=== PATIENT | male | born 1950 | race Two or more races ===

== ENCOUNTER 2024-06-15 13:39 | Emergency (ER) | payer OTHER ==
[~2024-06-15] VITALS: Ht 180.3 cm; Wt 76.9 kg
[2024-06-15] MEDS: SODIUM CHLORIDE 0.9% 1,000 ML IV ONE (14:30)
[2024-06-15 14:56] LABS: Basophils # (auto) 0 10 ^3/uL (0-0.2); Basophils % (auto) 0.7 % (0.0-2.0); Eosinophils # (auto) 0.1 10 ^3/uL (0-0.8); Hematocrit 24.5 % (41.0-53.0); Hemoglobin 7.3 g/dL (13.5-17.5); Lymphocytes # (auto) 1.3 10 ^3/uL (0.4-5.4); Monocytes # (auto) 0.4 10 ^3/uL (0-1.3)
[2024-06-15 14:57] LABS: Lymphocytes % (auto) 26.7 % (10.0-50.0); Mean Corpuscular Hemoglobin 20.2 pg (28.0-32.0); Mean Corpuscular Volume 67.3 fL (80.0-100.0); Monocytes % (auto) 7.7 % (0.0-12.0); Neutrophils % (auto) 62.9 % (37.0-80.0); Nucleated Red Blood Cells % 0.1 %; Platelet Count (auto) 344 10^3/uL (140-450); Red Blood Cells 3.63 10^6/uL (4.5-5.90); Red Cell Distribution Width 18.2 % (11.8-14.3); White Blood Cell 4.8 10^3/uL (4.4-10.8)
[2024-06-15 15:04] LABS: Chloride 106 mmol/L (98-107); Sodium 140 mmol/L (136-145)
[2024-06-15 15:05] LABS: Anion Gap 9 (5-15); Carbon Dioxide 25 mmol/L (20-31)
[2024-06-15 15:06] LABS: Calcium 9.5 mg/dL (8.7-10.4)
[2024-06-15 15:10] LABS: BUN/Creatinine Ratio 7.6 (10.0-20.0); Blood Urea Nitrogen 8 mg/dL (9-23); Glucose 106 mg/dL (74-106)
--- NOTE | 2024-06-15 15:28 | ED.PDOC ---
History of Present Illness HPI Comments HPI: Poor Historian. 73-year-old male presents to the emergency department from PCP's office for low hemoglobin of blood obtained yesterday showing hemoglobin of 7.1. Patient complains of some exertional dyspnea and generalized weakness. Denies any bleeding from anywhere. Patient has been off of his aspirin for the last 10 days but took one pill yesterday for a headache. He is off of his aspirin in preparation for a colonoscopy coming up next week. He never had a colonoscopy before. He states having history of hemorrhoids but he is not actively bleeding. He states his stool color is normal. VITALS; TEMP: 98.3 F HEART RATE; 72 02 SAT; 98% on room air RR; 18 BP; 135/75 PMH: hyperlipidemia, hemorrhoids PSH: R knee SOCIAL HISTORY: denies tobacco use, denies etoh use, denies drug use MEDS; Xanax, ASA ALLERGIES; ibuprofen, acetaminophen REVIEW OF SYSTEMS: CONSTITUTIONAL: Denies acute: fever, diaphoresis, chills, HEAD: Denies acute: headache, photophobia Eyes: Denies acute: Double vision, vision loss, eye pain, eye discharge. EARS: Denies acute: tinnitus, hearing loss, ear discharge, ear pain, THROAT: Denies acute: sore throat, swelling, difficulty swallowing , pain with swallowing, change in voice. NECK: Denies acute: neck pain, neck swelling, stiff neck. HEART: Denies acute : chest pain, palpitations, LUNGS: Denies acute: wheezing, cough, hemoptysis ABDOMEN: Denies acute: abdominal pain, Nausea, Vomiting, diarrhea, melena , hematemesis, hematochezia SKIN: Denies acute: rash, redness, lesions, itchiness. EXTREMITIES: Denies acute: calf pain, numbness, tingling, weakness, denies pain in extremity. Denies acute: Low back pain. Neuro: Denies acute: focal neurological deficit, motor or sensory focal neurological deficit, tremors, seizure like activity, confusion, dizziness, change in mental status, loss of bowel or bladder function, cauda equina like symptoms. : Denies acute: dysuria, hematuria, flank pain, increase in urinary frequency. PSYCH: Denies acute: hallucination, suicidal ideation, homicidal ideation. PHYSICAL EXAM: General: no acute distress, awake and alert. Head: normocephalic, atraumatic. Neck: supple, trachea is midline, no swelling. Throat: Normal phonation. Eyes:, no erythema, no purulent discharge, no proptosis, no icterus. Heart: regular rate, regular rhythm, no significant murmur appreciated. Lungs: no apparent respiratory distress, Able to speak in full sentences. No wheezing, no rhonchi, no crackles. No stridors Clear to auscultation bilaterally. Abdomen: non tender to palpation, non distended, soft, no guarding, no rebound, + bowel sounds. Neuro: Awake, Alert, oriented to name, self, situation, follows commands GCS=15. Speech is normal. Skin: no petechia, no purpura, no cyanosis, slightly-pale, not jaundice. Lower extremities: --trace bilateral - Pitting edema no deformity, no focal swelling, no calf TTP. Makes eye contact. moves all four extremities. Face: no apparent facial droop. Ambulating in the ED independently. Chief Complaint: Abnormal LAB's Time Seen by MD: 13:44 Reviewed Notes: Nurses Notes, Medications, Allergies Allergies: Coded Allergies: NO KNOWN ALLERGIES (Unverified , 06/15/24) Information Source: Patient Mode of Arrival: Ambulatory Past Medical History PAST MEDICAL HISTORY: High Lipids Past Medical History (Other): hemorrhoids Surgical History: Denies all surgeries Surgical History (Other): R knee Family History Family History: Reviewed,noncontributory to illness Social History Smoker: Non-Smoker Alcohol: Denies ETOH Use Drugs: Denies Drug Use Lives In: Home Was a procedure done? Was a procedure done?: No Differential Dx Considerations may include: As far as shortness of breath, DDx include ACS, unstable angina, anxiety, PE, pneumothroax, neoplasm, cardiac ischemia, COPD, asthma, CHF, pleural effusion, tobacco abuse, pneumonia, hypoxia, hypercapnia, anemia., infection/sepsis., pulmonary edema. Asthma, Cardiac tamponade, infection. As far as anemia: Differential diagnosis includes but not limited to blood loss, infection, neoplasm, leukemia, iron deficiency, poisoning, GI bleed. X-Ray, Labs, Meds, VS Vital Signs Date Time Temp Pulse Resp B/P (MAP) Pulse Ox O2 Delivery O2 Flow Rate FiO2 06/15/24 17:53 104 06/15/24 15:58 95 18 100 Room Air* 0 21 06/15/24 15:57 98.1 98 18 122/73 (89) 100 98.1 06/15/24 14:15 98.3 72 18 135/75 (95) 98 Lab Test 06/15/24 16:41 06/15/24 14:25 Range/Units Hemoglobin 7.3 L 7.3 L 13.5-17.5 g/dL Hematocrit 24.1 L 24.5 L 41.0-53.0 % White Blood Count 4.8 4.4-10.8 10^3/uL Red Blood Count 3.63 L 4.5-5.90 10^6/uL Mean Corpuscular Volume 67.3 L 80.0-100.0 fL Mean Corpuscular Hemoglobin 20.2 L 28.0-32.0 pg Mean Corpuscular Hemoglobin Concent 30.0 L 32.0-36.0 g/dL Red Cell Distribution Width 18.2 H 11.8-14.3 % Platelet Count 344 140-450 10^3/uL Mean Platelet Volume 6.9 6.9-10.8 fL Neutrophils (%) (Auto) 62.9 37.0-80.0 % Lymphocytes (%) (Auto) 26.7 10.0-50.0 % Monocytes (%) (Auto) 7.7 0.0-12.0 % Eosinophils (%) (Auto) 2.0 0.0-7.0 % Basophils (%) (Auto) 0.7 0.0-2.0 % Neutrophils # (Auto) 3.0 1.6-8.6 10 ^3/uL Lymphocytes # (Auto) 1.3 0.4-5.4 10 ^3/uL Monocytes # (Auto) 0.4 0-1.3 10 ^3/uL Eosinophils # (Auto) 0.1 0-0.8 10 ^3/uL Basophils # (Auto) 0 0-0.2 10 ^3/uL Nucleated Red Blood Cells 0.1 % Sodium Level 140 136-145 mmol/L Potassium Level 4.0 3.5-5.1 mmol/L Chloride Level 106 98-107 mmol/L Carbon Dioxide Level 25 20-31 mmol/L Anion Gap 9 5-15 Blood Urea Nitrogen 8 L 9-23 mg/dL Creatinine 1.05 0.700-1.30 mg/dL Glomerular Filtration Rate Calc 76 >90 mL/min BUN/Creatinine Ratio 7.6 L 10.0-20.0 Serum Glucose 106 74-106 mg/dL Calcium Level 9.5 8.7-10.4 mg/dL Troponin I High Sensitivity 7 </=54 ng/L Current Medications Medications (Trade) Dose Ordered Sig/Genna Route Start Time Stop Time Status Last Admin Sodium Chloride 1,000 ml @ 1,000 mls/hr Q1H ONCE IV 06/15/24 14:30 06/15/24 15:29 DC 06/15/24 14:30 Ferrous Sulfate 325 mg ONCE ONCE PO 06/15/24 17:30 06/15/24 17:46 DC 06/15/24 17:30 Time of 1ST Reevaluation: 20:30 (The case was discussed with the admitting team (HPI, physical exam, labs and diagnostic tests that were available at the time of disposition, ED course, treatment plan) on the phone. Patient wants to leave against medical advice. They said they will arrange for outpatient follow up for this patient. LISS Watts. ) Reevaluation 1ST: Unchanged Patient Education/Counseling: Diagnosis, Treatment, Prognosis Family Education/Counseling: No Family Present Comments Patient presented with the above HPI.---symptomatic anemia---workup was initiated. patient was found with the above mentioned diagnosis. Patient was given: Fluids. Repeat H and H was obtained which remained stable at 7.3. Patient has associated tachycardia and exertional dyspnea. Patient ED course and VS have been stabilized. Patient has been reassessed in the ED and remained in a stable condition. Pertinent incidental findings were discussed with the patient and/or family. patient was admitted to the medicine team for further evaluation and treatment of their presentation. However patient refused to stay and said he has to go home and he said he might come back again tomorrow. Patient left against medical advice. All the reports of any imaging studies that were ordered by myself were reviewed by myself. Departure 1 Departure Time of Disposition: 17:24 Impression: Primary Impression: Symptomatic anemia Additional Impressions: Tachycardia Left against medical advice Disposition: 07 LEFT AGAINST MEDICAL ADVICE Condition: Guarded Additional Instructions: You are leaving against medical advice. Seek medical attention ANGELO. Repeat your hemoglobin level in 24-48 hours. Take daily iron supplements. Return to the emergency department if you change your mind. Discharged With: Self Critical Care Note Critical Care Time?: No I personally scribed for RUBENS DUBOIS DO ([facility] on 06/15/24 at 15:28. Electronically submitted by Colin Garcia ([facility]). I personally scribed for RUBENS DUBOIS DO ([email or web address]) on 06/15/24 at 15:35. Electronically submitted by Colin Garcia ([facility]). RUBENS DUBOIS DO Jun 15, 2024 15:28
[2024-06-15 15:57] VITALS: BP 122/73; TEMP 98.1
[2024-06-15 15:58] VITALS: PULSE 95; RESP 18; O2SAT 100
[2024-06-15 16:54] LABS: Hemoglobin 7.3 g/dL (13.5-17.5)
[2024-06-15 16:56] LABS: Hematocrit 24.1 % (41.0-53.0)
[2024-06-15] MEDS: FERROUS SULFATE 325mg EC TAB PO ONE (17:30)
[2024-06-15 17:53] VITALS: PULSE 104
--- NOTE | 2024-06-15 19:07 | ECG ---
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
--- NOTE | 2024-06-15 20:29 | DVHINCON2 ---
HEIKE LOZA NP 06/15/242028: Date of service: Jun 15, [address] Anne Reason for Consultation Medical management History of Present Illness 73-year-old male with history of hyper lipidemia, hemorrhoids Presents after being sent in by his PCP for abnormal CBC. Reported hemoglobin was 7.1. As per the emergency emergency department physician, Patient was complaining of Generalized weakness An exertional dyspnea. Patient denied any signs of Overt Bleeding. Patient is scheduled for outpatient colonoscopy With gastroenterology the upcoming week. During the Emergency department of evaluation Hgb 7.3, Hct 24.5. BUN 8, creatinine 1.05, GFR 76. Vital signs as follow BP 122/73, HR 72 to 104, RR 18, Oxygen saturation 98% on room air. Internal medicine Was consulted with request to admit patient. However patient left against medical advice Prior to being evaluated. Past Medical History HLD, Anxiety Social History Unable to obtain Allergies: Coded Allergies: NO KNOWN ALLERGIES (Unverified , 06/15/24) Review of Systems Unable to obtain Vital Signs Vital Signs Date Time Temp Pulse Resp B/P (MAP) Pulse Ox O2 Delivery O2 Flow Rate FiO2 06/15/24 17:53 104 06/15/24 15:58 18 100 Room Air* 0 21 06/15/24 15:57 98.1 122/73 (89) 98.1 Physical Exam Unable to obtain as patient left against medical advice Prior to being seen Labs/Diagnostic Data Labs Test 06/15/24 16:41 06/15/24 14:25 Range/Units Hemoglobin 7.3 L 13.5-17.5 g/dL Hematocrit 24.1 L 41.0-53.0 % White Blood Count 4.8 4.4-10.8 10^3/uL Red Blood Count 3.63 L 4.5-5.90 10^6/uL Mean Corpuscular Volume 67.3 L 80.0-100.0 fL Mean Corpuscular Hemoglobin 20.2 L 28.0-32.0 pg Mean Corpuscular Hemoglobin Concent 30.0 L 32.0-36.0 g/dL Red Cell Distribution Width 18.2 H 11.8-14.3 % Platelet Count 344 140-450 10^3/uL Mean Platelet Volume 6.9 6.9-10.8 fL Neutrophils (%) (Auto) 62.9 37.0-80.0 % Lymphocytes (%) (Auto) 26.7 10.0-50.0 % Monocytes (%) (Auto) 7.7 0.0-12.0 % Eosinophils (%) (Auto) 2.0 0.0-7.0 % Basophils (%) (Auto) 0.7 0.0-2.0 % Neutrophils # (Auto) 3.0 1.6-8.6 10 ^3/uL Lymphocytes # (Auto) 1.3 0.4-5.4 10 ^3/uL Monocytes # (Auto) 0.4 0-1.3 10 ^3/uL Eosinophils # (Auto) 0.1 0-0.8 10 ^3/uL Basophils # (Auto) 0 0-0.2 10 ^3/uL Nucleated Red Blood Cells 0.1 % Sodium Level 140 136-145 mmol/L Potassium Level 4.0 3.5-5.1 mmol/L Chloride Level 106 98-107 mmol/L Carbon Dioxide Level 25 20-31 mmol/L Anion Gap 9 5-15 Blood Urea Nitrogen 8 L 9-23 mg/dL Creatinine 1.05 0.700-1.30 mg/dL Glomerular Filtration Rate Calc 76 >90 mL/min BUN/Creatinine Ratio 7.6 L 10.0-20.0 Serum Glucose 106 74-106 mg/dL Calcium Level 9.5 8.7-10.4 mg/dL Troponin I High Sensitivity 7 </=54 ng/L Assessment -Anemia Hgb 7.3, Hct 24.1 -Mild Sinus Tachycardia HR 72-104, ECG ST 104 Plan/Recommendation Patient was placed for admission by [facility]. However patient chose to leave against medical advice prior to being evaluated. Case management has been consulted to establish home safety evaluation. Will plan for follow up CBC on Wednesday and if needed outpatient transfusion of PRBCs prior to previously scheduled colonoscopy. Plan discussed with: Other (ER Physician) ROSS WILCOX MD 06/16/24 1125: Allergies: Coded Allergies: NO KNOWN ALLERGIES (Unverified , 06/15/24) Additional Comments Additional Comments Additional Comments Patient chart is reviewed and discussed with the nurse practitioner . Patient is seen and evaluated by nurse practitioner. I agree with his evaluation, documentation, assessment and care plan as outlined. Also discussed with the case management for outpatient follow up mentioned. HEIKE LOZA NP Jun 15, 2024 20:29 ROSS WILCOX MD Jun 16, 2024 11:25
== END 2024-06-15 20:27 | disposition left against medical advice (07) ==
LOC: ER 13:39
DX: D64.9 Anemia, unspecified (principal); E78.5 Hyperlipidemia, unspecified; R00.0 Tachycardia, unspecified; Z87.19 Personal history of other diseases of the digestive system
CPT/HCPCS: 36415; 80048; 84484; 85014; 85018; 85025; 86850; 86900; 86901; 93005; 96360; 99284; J7030